=== PATIENT | female | born 1945 | race Caucasian/White ===

== ENCOUNTER 2019-11-17 05:53 | Inpatient (IN) ==
--- NOTE | 2019-10-26 13:21 | Anesthesiology Consultation ---
Date of Service October 26, 2019 Assessment & Plan (1) Encounter for pre-operative examination: - Awaiting review of preop testing (labs, EKG, CXR). - Awaiting surgeon-ordered PCP preop evaluation scheduled 11/09 (Dr. Mendenhall). Chart Review Chart Review: Patient seen in Pre Admission Testing Teaching & Discussion Pre-Anesthesia Teaching/Discussion Notes: Instructed NPO after midnight before surgery,except medications with 15 cc of water. Medication instructions provided according to the PAT guidelines. History Surgery Operation Date: 11/17/19 12:35 Proposed Procedures p Left Total Knee Arthroplasty - Qasim Machado DO Height/Weight Height: 5 ft 8 in Weight: 89.9 kg Allergies Allergy/AdvReac Type Severity Reaction Status Date / Time Penicillins Allergy Unknown facial Verified 10/23/19 15:18 swelling codeine AdvReac Unknown confusion Verified 10/26/19 13:21 OREGANO AdvReac Mild nausea Uncoded 10/26/19 13:21 Medications Home Medications Medication Instructions Recorded Confirmed Last Taken amlodipine 5 mg PO DAILY 10/26/19 10/26/19 Unknown benzonatate 200 mg PO TID PRN 10/26/19 10/26/19 Unknown levothyroxine 88 mcg PO DAILY 10/26/19 10/26/19 Unknown losartan 50 mg PO DAILY 10/26/19 10/26/19 Unknown Past Medical History Medical History History of blood transfusion post-op right TKA Hypertension Hypothyroidism s/p thyroidectomy (for yael's thyroiditis) Osteoarthritis Exercise / Class Metabolic Activity III < 4 Walking/Shop/Light housework (uses walker PRN) Past Family History Family History Other No family history of adverse response to anesthesia Past Surgical History Surgical History History of cataract surgery History of colonoscopy History of endoscopic sinus surgery History of right knee joint replacement History of thyroidectomy partial + subsequent removal of remaining thyroid Past Anesthesia History No Hx of Anesthesia Complications and No Family Hx of Anesthesia Complications History of PONV No Hx of PONV and No Hx of Motion Sickness Social History Smoking Status: Never smoker Do You Dip or Chew Tobacco: No Hx Alcohol Use: Yes alcohol intake frequency: holidays/special occasions only Hx Substance Use: No substance use type: does not use Review of Systems Chronic non-productive cough. Patient denies chest pain, shortness of breath, wheezing, palpitations. Physical Exam Vital Signs VITALS BP 129/75 P 77 TEMP 98.4 SP02 94%RA RESP 16 PHYSICAL Full neck and c-spine range of motion. Full TMJ range of motion. TMD 3 finger breaths Mallampati Score 3 Dentition: intact Lungs: clear throughout to auscultation Cardiac: regular rate and rhythm, no murmurs noted Spine: normal Carotid arteries: negative bruit Extremities: no edema
--- NOTE | 2019-10-26 14:26 | XRay Report ---
XR chest Pre-admission PA/Lat CLINICAL HISTORY: pat preoperative evaluation COMPARISON STUDY: No previous studies for comparison. FINDINGS: The bones soft tissues and hemidiaphragms are normal. The cardiomediastinal silhouette is n ormal. The lungs are clear. The pulmonary vasculature is normal. IMPRESSION: Negative chest. ACT 112: Negative or not required by law. The above report was generated using voice recognition software. It may contain grammatical, syntax or spelling errors. Electronically signed by: Bravo Ruiz M.D. 10/26/2019 2:25 PM
[2019-10-26 15:44] LABS: Basophils # (auto) 0.02 K/uL (0-0.2); Basophils % (auto) 0.2 %; Eosinophils # (auto) 0.06 K/uL (0-0.5); Eosinophils % (auto) 0.7 %; Hematocrit (blood only) 31.4 % (37-47); Immature Granulocytes # (auto) 0.02 K/uL (0.00-0.02); Immature Granulocytes % (auto) 0.2 %; Lymphocytes # (auto) 1.06 K/uL (1.2-3.4); Lymphocytes % (auto) 12.8 %; Mean Corpuscular Hemoglobin 26.5 pg (25-34); Mean Corpuscular Hgb Conc 31.8 g/dL (32-36); Mean Corpuscular Volume 83.1 fL (80-100); Mean Platelet Volume 11.6 fL (7.4-10.4); Monocytes # (auto) 0.38 K/uL (0.11-0.59); Monocytes % (auto) 4.6 %; Neutrophils # (auto) 6.72 K/uL (1.4-6.5); Neutrophils % (auto) 81.5 %; Platelet Count 243 K/uL (130-400); RDW Coefficient of Variation 20.1 % (11.5-14.5); RDW Standard Deviation 60.8 fL (36.4-46.3); Red Blood Count 3.78 M/uL (4.2-5.4); White Blood Count 8.26 K/uL (4.8-10.8)
[2019-10-26 15:46] LABS: Albumin Level 3.7 gm/dl (3.4-5.0); BUN Creatinine Ratio 12.2 (10-20); Calcium 8.6 mg/dl (8.5-10.1); Creatinine Clr Calc Pharmacy 50.6 ml/min; Est GFR (African American) 55.9; Est GFR (Non-African American) 48.2; Potassium 3.2 mmol/L (3.5-5.1)
[2019-10-26 15:49] LABS: INR 1.1 (0.9-1.1); Partial Thromboplastin Time 26.6 Seconds (21.0-31.0); Prothrombin Time 11.3 Seconds (9.0-12.0)
[2019-10-26 16:17] LABS: Appearance Urine Clear (Clear); Bacteria Urine Automated Negative (Negative); Bilirubin Urine Negative (Negative); Blood Urine Negative (Negative); Color Urine Yellow; Epithelial Cell Urine Auto 20-30 /lpf (0-5); Glucose Urine UA Negative (Negative); Ketones Urine Negative (Negative); Leukocyte Esterase Urine Trace (Negative); Nitrite Urine Negative (Negative); Protein Urine Negative (Negative); RBC Urine Automated 0-4 /hpf (0-4); Urobilinogen Urine Negative (Negative); pH Urine 5.5 (4.5-7.5)
[2019-10-26 16:27] LABS: Anisocytosis Present; Hypochromasia Present; Target Cells 1+
[2019-10-27 06:13] LABS: Estimated Average Glucose 120 mg/dl; Hemoglobin A1C 5.8 % (4.5-5.6)
--- NOTE | 2019-10-29 14:09 | History & Physical Report ---
Date of Service October 29, 2019 date of surgery: 11-17-19 Assessment & Plan (1) Arthritis of knee, left: Further care discussed with patient and at this point in time has failed conservative measures and would like to proceed with a left total knee replacement. Plan on discharge will be home with home health physical therapy. DVT prophalaxis with TEDs, SCDs and will also place on aspirin 81 mg p.o. b.i.d. for a month postop. Patient will have follow up appointment in our office two weeks post op for staple/suture removal and re-evaluation. Patient otherwise has no other questions or concerns. History of Present Illness Chief Complaint: left knee pain Primary Care Provider: Ben Fletcher Ms Mondragon is a 74 year old female who complains of left knee pain, presents for pre-op evaluation prior to a left total knee replacement at [facility]. She presents with pain, decreased motion and stiffness on the left side. She states that the symptoms have been chronic non-traumatic. The symptoms occur constantly with intermittent worsening. Currently the patient states that the symptoms are moderate-severe. The pain is described as aching, throbbing and shooting. She rates her current pain as 8/10. The symptoms are aggravated by descending stairs, ascending stairs, daily activities, kneeling, movement, sleeping in any position, standing, walking and squatting. she had previous Right TKA in 2007. she has tried PO NSAIDs and tylenol without relief. Allergies Allergy/AdvReac Type Severity Reaction Status Date / Time Penicillins Allergy Unknown facial Verified 10/23/19 15:18 swelling codeine AdvReac Unknown confusion Verified 10/26/19 13:21 OREGANO AdvReac Mild nausea Uncoded 10/26/19 13:21 Home Medications Home Medications Medication Instructions Recorded Confirmed Type amlodipine 5 mg PO DAILY 10/26/19 10/26/19 History benzonatate 200 mg PO TID PRN 10/26/19 10/26/19 History levothyroxine 88 mcg PO DAILY 10/26/19 10/26/19 History losartan 50 mg PO DAILY 10/26/19 10/26/19 History Past Med/Surg History Medical History History of blood transfusion post-op right TKA Hypertension Hypothyroidism s/p thyroidectomy (for yael's thyroiditis) Osteoarthritis Surgical History History of cataract surgery History of colonoscopy History of endoscopic sinus surgery History of right knee joint replacement History of thyroidectomy partial + subsequent removal of remaining thyroid Family History Other No family history of adverse response to anesthesia Social History Preferred Language: Spanish Communication Ability: Effective Video Network Engineer Required: No Beliefs That Will Affect Care: None Current Living Situation: Alone Other Information That Helps Us Care for You: No Feels Safe at Home: Yes Safety Concerns: Feels Safe At This Time Smoking Status: Never smoker Do You Dip or Chew Tobacco: No ; Second Hand Exposure: Yes (as a child and first was a smoker) ; Hx Alcohol Use: Yes Hx Substance Use: No Review of Systems Review of Systems: All systems reviewed & are unremarkable except as noted in HPI & below Constitutional: no fever, no chills and no sweats Respiratory: no cough and no dyspnea Cardiovascular: no chest pain, no dyspnea and no orthopnea Gastrointestinal: no abdominal pain, no nausea and no vomiting Musculoskeletal: as per Subjective / HPI Physical Exam Physical Exam: Ht: 5ft 8in Wt: 89.9kg Constitutional: WD/WN, vitals as above no acute distress Respiratory: normal respiratory effort, lungs clear to auscultation no respiratory distress, no labored breathing and does not use accessory muscles Cardiovascular: RRR, no murmur, no edema Gastrointestinal (Abdomen): normal bowel sounds, soft, nontender, no hepatosplenomegaly Musculoskeletal: Knee: + knee abnormal to inspection (left knee: ), + effusion (+1 effusion), + surgical incision (well healed portals), + limited ROM of knee (ROM 0/3/110), + knee ROM with crepitation, + joint line tenderness (medial joint line) and + Amrita's sign positive; no deformity, no skin erythema, no ecchymosis, no valgus laxity, no varus laxity, anterior drawer test negative, Kaylah's sign negative and pivot shift test negative Results & Data Laboratory Results Laboratory Results WBC 8.26 K/uL (4.8-10.8) 10/26/19 14:00 RBC 3.78 M/uL (4.2-5.4) L 10/26/19 14:00 Hgb 10.0 g/dL (12.0-16.0) L 10/26/19 14:00 Hct 31.4 % (37-47) L 10/26/19 14:00 MCV 83.1 fL (80-100) 10/26/19 14:00 MCH 26.5 pg (25-34) 10/26/19 14:00 MCHC 31.8 g/dL (32-36) L 10/26/19 14:00 RDW Std Deviation 60.8 fL (36.4-46.3) H 10/26/19 14:00 RDW Coeff of Elvin 20.1 % (11.5-14.5) H 10/26/19 14:00 Plt Count 243 K/uL (130-400) 10/26/19 14:00 MPV 11.6 fL (7.4-10.4) H 10/26/19 14:00 Immature Gran % (Auto) 0.2 % 10/26/19 14:00 Neut % (Auto) 81.5 % 10/26/19 14:00 Lymph % (Auto) 12.8 % 10/26/19 14:00 [place] % (Auto) 4.6 % 10/26/19 14:00 Eos % (Auto) 0.7 % 10/26/19 14:00 Baso % (Auto) 0.2 % 10/26/19 14:00 Immature Gran # (Auto) 0.02 K/uL (0.00-0.02) 10/26/19 14:00 Neut # (Auto) 6.72 K/uL (1.4-6.5) H 10/26/19 14:00 Lymph # (Auto) 1.06 K/uL (1.2-3.4) L 10/26/19 14:00 [place] # (Auto) 0.38 K/uL (0.11-0.59) 10/26/19 14:00 Eos # (Auto) 0.06 K/uL (0-0.5) 10/26/19 14:00 Baso # (Auto) 0.02 K/uL (0-0.2) 10/26/19 14:00 Hypochromasia Present 10/26/19 14:00 Anisocytosis Present 10/26/19 14:00 Target Cells 1+ 10/26/19 14:00 PT 11.3 Seconds (9.0-12.0) 10/26/19 14:00 INR 1.1 (0.9-1.1) 10/26/19 14:00 APTT 26.6 Seconds (21.0-31.0) 10/26/19 14:00 PTT Ratio 1.0 10/26/19 14:00 Sodium 139 mmol/L (136-145) 10/26/19 14:00 Potassium 3.2 mmol/L (3.5-5.1) L 10/26/19 14:00 Chloride 104 mmol/L (98-107) 10/26/19 14:00 Carbon Dioxide 30 mmol/L (21-32) 10/26/19 14:00 Anion Gap 5.0 (3-11) 10/26/19 14:00 BUN 14 mg/dl (7-18) 10/26/19 14:00 Creatinine 1.11 mg/dl (0.6-1.2) 10/26/19 14:00 Est Cr Clr Drug Dosing 50.6 ml/min 10/26/19 14:00 Est GFR ( Amer) 55.9 10/26/19 14:00 Est GFR (Non-Af Amer) 48.2 10/26/19 14:00 BUN/Creatinine Ratio 12.2 (10-20) 10/26/19 14:00 Glucose 155 mg/dl (70-99) H 10/26/19 14:00 Estimat Average Glucose 120 mg/dl 10/26/19 14:00 Hemoglobin A1c 5.8 % (4.5-5.6) H 10/26/19 14:00 Calcium 8.6 mg/dl (8.5-10.1) 10/26/19 14:00 Albumin 3.7 gm/dl (3.4-5.0) 10/26/19 14:00 Urine Color Yellow 10/26/19 14:00 Urine Appearance Clear (Clear) 10/26/19 14:00 Urine pH 5.5 (4.5-7.5) 10/26/19 14:00 Ur Specific [place] 1.020 (1.000-1.030) 10/26/19 14:00 Urine Protein Negative (Negative) 10/26/19 14:00 Urine Glucose (UA) Negative (Negative) 10/26/19 14:00 Urine Ketones Negative (Negative) 10/26/19 14:00 Urine Blood Negative (Negative) 10/26/19 14:00 Urine Nitrite Negative (Negative) 10/26/19 14:00 Urine Bilirubin Negative (Negative) 10/26/19 14:00 Urine Urobilinogen Negative (Negative) 10/26/19 14:00 Ur Leukocyte Esterase Trace (Negative) H 10/26/19 14:00 Urine WBC (Auto) 1-5 /hpf (0-5) 10/26/19 14:00 Urine RBC (Auto) 0-4 /hpf (0-4) 10/26/19 14:00 U Hyaline Cast (Auto) 1-5 /lpf (0-5) 10/26/19 14:00 U Epithel Cells (Auto) 20-30 /lpf (0-5) H 10/26/19 14:00 Urine Bacteria (Auto) Negative (Negative) 10/26/19 14:00 Blood Type A Negative 10/26/19 14:00 Antibody Screen NEGATIVE 10/26/19 14:00 Diagnostic Findings Left Knee X-rays confirm degenerative changes to the left knee, greatest medial compartments and patellofemoral joint, showing joint space narrowing, osteophyte formation and subchondral sclerosis. no acute bony pathology noted.
--- OUTSIDE RECORDS SUMMARY | 2019-11-17 05:56 | External Medical Summary | Continuity of Care Document ---
:1945 Author Name Juan Mcmahan, Provider Address Unavailable Unavailable , Care Team Providers Name Role Phone Unavailable Unavailable Unavailable PCP, UNKNOWN Unavailable Unavailable Problems Active medical history not documented Allergies and Adverse Reactions Allergy history not documented Medications Medications not documented Procedures Procedures not documented Immunizations Immunizations not documented Plan of Treatment Planned Observations Planned Goals not documented Results No Known Results Results not documented
[2019-11-17] MEDS ORDERED: CLINDAMYCIN 600 MG/54 ML BAG IV SCH (06:00)
[2019-11-17] MEDS ORDERED: METOCLOPRAMIDE HCL 10 MG TABLET PO SCH (06:00)
[2019-11-17] MEDS ORDERED: dexAMETHasone 4 MG TAB PO SCH (06:00)
[2019-11-17] MEDS ORDERED: TRANEXAMIC ACID 1,000 MG **IV Intra-op IV SCH (06:00)
[2019-11-17] MEDS ORDERED: ROPIVACAINE 0.5% HCL/PF 150 MG, BUPIVACAINE 0.5% MPF 30 ML, EPINEPHrine 30MG/30ML (OR U... INSTIL SCH (06:00)
[2019-11-17] MEDS ORDERED: FAMOTIDINE 20 MG TAB PO SCH (06:00)
[2019-11-17] MEDS ORDERED: TRANEXAMIC ACID 1,000 MG **IV Pre-op IV SCH (06:00)
[2019-11-17] MEDS ORDERED: GABAPENTIN 300 MG CAP PO SCH (06:00)
[2019-11-17] MEDS ORDERED: ACETAMINOPHEN 500 MG TAB PO SCH (06:00)
[2019-11-17] MEDS ORDERED: CeleBREX 200 MG CAP PO SCH (06:00)
[2019-11-17] MEDS ORDERED: LR 500ML BOLUS, THEN 15ML/HR IV SCH (06:00)
[2019-11-17] MEDS ORDERED: BUPIVACAINE 0.5 % 5 MG/1 ML PF 10ML VIAL ONE (06:35)
[2019-11-17] MEDS ORDERED: BACITRACIN INJ 50,000 UNIT VIAL ONE (07:01)
[2019-11-17] MEDS ORDERED: ePHEDrine sulfate 50 MG/ML AMP IV PRN (07:07)
[2019-11-17] MEDS ORDERED: ONDANSETRON INJ 2 MG/ML 2 ML VIAL IV PRN ×2 (07:07→11:21)
[2019-11-17] MEDS ORDERED: fentaNYL citrate 100 MCG/2 ML VIAL IV PRN (07:07)
[2019-11-17] MEDS ORDERED: ATROPINE SULFATE 0.1 MG/ML 10ML SYR IV PRN (07:07)
[2019-11-17] MEDS ORDERED: PHENYLEPHRINE 100MCG/ML 5ML SYR ONE (07:12)
[2019-11-17] MEDS ORDERED: fentaNYL citrate 100 MCG/2 ML VIAL ONE (07:12)
[2019-11-17] MEDS ORDERED: ePHEDrine sulfate 50 MG/ML SYR ONE (07:12)
[2019-11-17] MEDS ORDERED: PROPOFOL IV EMULSION 10 MG/ML 20 ML VIAL IV ONE (07:12)
[2019-11-17] MEDS ORDERED: LIDOCAINE HCL 2% 2 ML VIAL/AMP(20MG/ML) INFIL ONE (07:12)
[2019-11-17] MEDS ORDERED: MIDAZOLAM HCL 1 MG/ML 2ML VIAL ONE (07:12)
--- NOTE | 2019-11-17 07:23 | History & Physical Bridge Note ---
Date of Service November 17, 2019 History & Physical Bridge Note I have examined the patient, reviewed the History & Physical and in the interval since the performance of the History & Physical I have noted the following changes of clinical significance: no changes noted
--- NOTE | 2019-11-17 09:35 | Operative Report ---
Post Operative Report Pre & Post Diagnosis Operation Date: 11/17/19 08:35 Pre-Op Diagnosis: LEFT KNEE OSTEOARTHRITIS Post-Op Diagnosis: LEFT KNEE OSTEOARTHRITIS I identified the patient and participated in the time-out.: Yes Procedure Operation Date: 11/17/19 08:35 Actual Procedures p Left Total Knee Arthroplasty(Left utilizing Riley & NephMerku journey 2 patient matched total knee arthroplasty size 6 femur 5 tibia 13 polyethylene 32 oval patella) - Qasim Machado DO Surgeon Qasim Machado DO Parts Counter Associate Christiano ESCALANTE Estimated Blood Loss 5 Findings Consistent with Post-Op Diagnosis Patient presents with severe end-stage tricompartmental degenerative joint disease left knee no response to conservative management intraoperative findings included [id number] eburnation with marginal osteophytes subchondral sclerosis cystic changes [id number] moderate to large effusion. Specimens Bone and cartilage Drains Medium bore Hemovac Complications none Disposition Accompanied Patient To Recovery: No Disposition: Recovery Room Indications Patient presents for left total knee arthroplasty after failed attempted conservative management clinic physical therapy anti-inflammatories relative rest activity modification corticosteroid injections Visco supplementations patient above intraoperative findings were noted times surgery Description of Procedure After proper prepping and draping of the left lower extremity anterior midline incision was made over the region of the extensor extensor mechanism after meticulous hemostasis was obtained and maintained in subcutaneous tissues a medial parapatellar incision was made The patella was subluxed lateralward the medial lateral gutter were cleaned from any hypertrophic synovitis and scar tissue of the distal femoral block was placed and the distal femoral osteotomy cut was made subsequently the chamfers anterior and posterior osteotomy cuts were made utilizing the 4-in-1 block the tibia was subsequently subluxed anteriorward medial and ateral meniscal remnants were excised in their entirety remnants of the anterior and posterior cruciate ligaments were excised in their entirety excellent exposure of the proximal tibia was obtained the tibial osteotomy guide was placed on the proximal tibial osteotomy cut was made once again the knee was irrigated with copious amounts of sterile saline solution the patella was subsequently everted lateralward thickened scar tissue around the patella was removed the patella was subsequently cut utilizing a freehand technique and was drilled prepared for final preparation and placement of patella socially flexion-extension gaps were checked and the equal and symmetric trials were placed to the appropriate femoral and tibial trials with poly-spacer being placed for equal flexion and extension gaps and full range of motion including extension to 0 and flexion to 140 the trial components after having been taken to recovery range of motion was subsequently removed meticulous hemostasis was obtained and maintained subsequently a knee block injection of joint cocktail including ropivacaine 0.5% 150 mg. Bupivacaine 0.5% epinephrine 1-200,030 mL's toradol 30 mg dexamethasone 4 mg ketamine 10 mg clonidine 100 micrograms normal saline solution 30 mg was infiltrated into the soft tissues of the posterior knee medial lateral gutters and periosteal synovium special attention was paid to protect neurovascular structures at all times subsequently trial components having been removed the knee was irrigated with sterile saline solution. debris was removed the proximal tibia was subsequently prepared and was made ready for the placement of the tibial component tibial component was also cemented and tamped into position the femoral component was subsequently placed and cemented in the position the patellar component was subsequently cemented in position because hemostasis once again obtained and maintained wound having been thoroughly irrigated with debridement and debridement lavage was performed as well as a medial parapatellar incision closed with #1 Vicryl in interrupted fashion subcutaneous was closed with #2 Vicryl skin was closed with skin clips. PA-C was necessary for prepping and drapping as well as wound closure of deep fascia Sub cutaneous tissue and skin and was necessary for the case. A sterile compressive dressing was placed patient was taken to recovery in stable condition of report dictated by Carter I attest to the content of the Intraoperative Record and any orders documented therein. Any exceptions are noted below. I attest to the content of the Intraoperative Record and any orders documented therein. Any exceptions are noted below.
--- NOTE | 2019-11-17 10:46 | XRay Report ---
XR knee LT 1 or 2V routine CLINICAL HISTORY: Surgical Post Op COMPARISON: Knee radiographs March 01, 2009. FINDINGS: Alignment of the total left knee arthroplasty is anatomic. There is no fracture or unexpec anastasia radiopaque foreign body. There are drains and skin gregorio. IMPRESSION: Expected findings following total left knee arthroplasty. ACT 112: Negative or not required by law. Electronically signed by: Chilango Jin M.D. 11/17/2019 10:45 AM
--- NOTE | 2019-11-17 11:03 | Anesthesiology Progress Note ---
Date of Service November 17, 2019 Anesthesia Post Procedure Vital Signs Vital Signs: Temp Pulse Pulse Resp BP Pulse Ox 11/17/19 10:55 97.7 F 64 13 104/55 L 100 11/17/19 10:45 68 12 104/54 L 99 11/17/19 10:35 68 14 104/53 L 100 11/17/19 10:25 70 14 99/54 L 100 11/17/19 10:18 97.3 F L 75 14 101/49 L 99 11/17/19 06:32 98.1 F 67 16 138/77 100 Transfer of Care Handoff Completed per policy Notes Mental Status: alert / awake / arousable and participated in evaluation Patient Amnestic to Procedure: Yes Nausea / Vomiting: adequately controlled Pain: adequately controlled Airway Patency, RR, SpO2: stable & adequate BP & HR: stable & adequate Hydration State: stable & adequate Neuraxial Anesthesia: was administered and sensory block is resolving Anesthetic Complications: no major complications apparent and Pt Satisfied with anesthetic care
[2019-11-17] MEDS ORDERED: NALOXONE HCL 0.4 MG/1 ML VIAL/CARP IV PRN (11:21)
[2019-11-17] MEDS ORDERED: MAGNESIUM HYDROXIDE SUSP 30 ML UDC PO PRN (11:21)
[2019-11-17] MEDS ORDERED: bisacodyL 10 MG SUPP PR PRN (11:21)
[2019-11-17] MEDS: SODIUM CHLORIDE 0.9% 1000ML 1,000 ML IV SCH ×2 (11:31→21:47)
[2019-11-17] MEDS: ACETAMINOPHEN 500 MG TAB PO SCH ×2 (13:58→21:46)
[2019-11-17] MEDS: CLINDAMYCIN 600 MG in DEXTROSE 5% 50 ML IV SCH (15:32)
[2019-11-17] MEDS: FERROUS GLUCONATE 324 MG TAB PO SCH (16:20)
[2019-11-17] MEDS: ASPIRIN 81 MG ECTAB PO SCH (21:46)
[2019-11-17] MEDS: SENNA 8.6 MG TAB PO SCH (21:46)
[2019-11-17] MEDS: DOCUSATE SODIUM 100 MG CAP PO SCH (21:48)
[2019-11-18] MEDS: CLINDAMYCIN 600 MG in DEXTROSE 5% 50 ML IV SCH (00:14)
[2019-11-18] MEDS: ACETAMINOPHEN 500 MG TAB PO SCH ×3 (05:44→21:53)
[2019-11-18] MEDS: LEVOTHYROXINE SODIUM 88 MCG TABLET PO SCH (05:44)
[2019-11-18 06:33] LABS: Hematocrit (blood only) 24.1 % (37-47); Hemoglobin 7.9 g/dL (12.0-16.0); Mean Corpuscular Hemoglobin 27.9 pg (25-34); Mean Corpuscular Hgb Conc 32.8 g/dL (32-36); Mean Corpuscular Volume 85.2 fL (80-100); Mean Platelet Volume 9.4 fL (7.4-10.4); Platelet Count 248 K/uL (130-400); RDW Standard Deviation 62.2 fL (36.4-46.3); Red Blood Count 2.83 M/uL (4.2-5.4); White Blood Count 10.63 K/uL (4.8-10.8)
[2019-11-18 07:11] LABS: BUN Creatinine Ratio 17.8 (10-20); Calcium 7.9 mg/dl (8.5-10.1); Creatinine Clr Calc Pharmacy 62.9 ml/min; Est GFR (Non-African American) 64.7; Potassium 3.7 mmol/L (3.5-5.1)
--- NOTE | 2019-11-18 08:18 | Anesthesiology Progress Note ---
Date of Service November 18, 2019 Anesthesia Post Procedure Vital Signs Vital Signs: Temp Pulse Pulse Resp BP BP Pulse Ox 11/18/19 07:27 36.6 C 62 18 114/71 98 11/18/19 03:26 36.7 C 71 14 102/55 L 97 11/17/19 23:23 36.6 C 77 15 96/51 L 96 11/17/19 20:01 36.3 C L 77 17 127/73 98 11/17/19 15:05 36.4 C L 60 17 108/60 99 11/17/19 14:18 36.4 C L 69 16 124/76 94 11/17/19 13:20 36.4 C L 70 16 116/70 98 11/17/19 12:26 65 16 100/64 96 11/17/19 11:50 62 14 104/64 100 11/17/19 11:20 36.4 C L 71 14 94/56 L 98 11/17/19 11:05 36.5 C 68 15 100/55 L 99 11/17/19 10:55 36.5 C 64 13 104/55 L 100 11/17/19 10:45 68 12 104/54 L 99 11/17/19 10:35 68 14 104/53 L 100 11/17/19 10:25 70 14 99/54 L 100 11/17/19 10:18 36.3 C L 75 14 101/49 L 99 Notes Mental Status: alert / awake / arousable and participated in evaluation Patient Amnestic to Procedure: Yes Nausea / Vomiting: adequately controlled Pain: adequately controlled Airway Patency, RR, SpO2: stable & adequate BP & HR: stable & adequate Hydration State: stable & adequate Neuraxial Anesthesia: was administered and sensory block resolved Anesthetic Complications: no major complications apparent and Pt Satisfied with anesthetic care
[2019-11-18] MEDS: MULTIVITAMIN TAB PO SCH (08:43)
[2019-11-18] MEDS: AMLODIPINE BESYLATE 5 MG TAB PO SCH (08:43)
[2019-11-18] MEDS: ASPIRIN 81 MG ECTAB PO SCH ×2 (08:43→20:35)
[2019-11-18] MEDS: FERROUS GLUCONATE 324 MG TAB PO SCH ×2 (08:43→17:03)
[2019-11-18] MEDS: LOSARTAN POTASSIUM 50 MG TAB PO SCH (08:43)
[2019-11-18] MEDS: DOCUSATE SODIUM 100 MG CAP PO SCH ×2 (08:45→20:34)
--- NOTE | 2019-11-18 08:47 | Orthopedic Progress Note ---
Date of Service November 18, 2019 Assessment & Plan (1) Arthritis of knee, left: Postop day 1 status post left total knee arthroplasty. Anemia-H&H as noted above. Patient was noted to have a hemoglobin of 10.0 preoperatively. Hemoglobin reviewed in 2008 was also around the 10 janis but patient is unsure if she is ever been told she is has chronic anemia etc.. She is currently asymptomatic. Vital signs are stable. She states that she has been on iron in the past but not recently. Plan to hold on transfusion at this time. We will see how she progresses with her physical therapy today. Begin PT/OT protocols. Weightbearing as tolerated. DVT prophylaxis-aspirin twice daily, SCDs, JACOB hose Pain management with acetaminophen, IV hydromorphone, oxycodone. DC planning-patient currently states she is not going to do any formal PT. She wants a list of exercises to do on her own at home. She states that she has done this before and has access to physical therapy centers if she feels she needs any extra help. I will discuss this with Dr. Machado's team. Subjective Postop day 1 Patient is currently sitting up in bed. She is awake and alert. No complaints this morning. She feels well. Denies any shortness of breath, chest pain, lightheadedness. Pain is controlled. Physical Exam Physical Exam: Dressings are clean, dry, and intact. Calves are soft and nontender. Neurovascular is intact. Toes are mobile. She has good dorsiflexion and plantarflexion of the left ankle and foot. Hemovac drainage was minimal. Results & Data Vital Signs (Past 12 Hours) Vital Signs Temp Pulse Resp BP BP Pulse Ox 11/18/19 07:27 36.6 C 62 18 114/71 98 11/18/19 03:26 36.7 C 71 14 102/55 L 97 11/17/19 23:23 36.6 C 77 15 96/51 L 96 Laboratory Results Laboratory Results WBC 10.63 K/uL (4.8-10.8) 11/18/19 06:23 RBC 2.83 M/uL (4.2-5.4) L 11/18/19 06:23 Hgb 7.9 g/dL (12.0-16.0) L 11/18/19 06:23 Hct 24.1 % (37-47) L 11/18/19 06:23 MCV 85.2 fL (80-100) 11/18/19 06:23 MCH 27.9 pg (25-34) 11/18/19 06:23 MCHC 32.8 g/dL (32-36) 11/18/19 06:23 RDW Std Deviation 62.2 fL (36.4-46.3) H 11/18/19 06:23 RDW Coeff of Elvin 20.0 % (11.5-14.5) H 11/18/19 06:23 Plt Count 248 K/uL (130-400) 11/18/19 06:23 MPV 9.4 fL (7.4-10.4) 11/18/19 06:23 Immature Gran % (Auto) 0.2 % 10/26/19 14:00 Neut % (Auto) 81.5 % 10/26/19 14:00 Lymph % (Auto) 12.8 % 10/26/19 14:00 [place] % (Auto) 4.6 % 10/26/19 14:00 Eos % (Auto) 0.7 % 10/26/19 14:00 Baso % (Auto) 0.2 % 10/26/19 14:00 Immature Gran # (Auto) 0.02 K/uL (0.00-0.02) 10/26/19 14:00 Neut # (Auto) 6.72 K/uL (1.4-6.5) H 10/26/19 14:00 Lymph # (Auto) 1.06 K/uL (1.2-3.4) L 10/26/19 14:00 [place] # (Auto) 0.38 K/uL (0.11-0.59) 10/26/19 14:00 Eos # (Auto) 0.06 K/uL (0-0.5) 10/26/19 14:00 Baso # (Auto) 0.02 K/uL (0-0.2) 10/26/19 14:00 Hypochromasia Present 10/26/19 14:00 Anisocytosis Present 10/26/19 14:00 Target Cells 1+ 10/26/19 14:00 PT 11.3 Seconds (9.0-12.0) 10/26/19 14:00 INR 1.1 (0.9-1.1) 10/26/19 14:00 APTT 26.6 Seconds (21.0-31.0) 10/26/19 14:00 PTT Ratio 1.0 10/26/19 14:00 Sodium 139 mmol/L (136-145) 11/18/19 06:23 Potassium 3.7 mmol/L (3.5-5.1) 11/18/19 06:23 Chloride 109 mmol/L (98-107) H 11/18/19 06:23 Carbon Dioxide 25 mmol/L (21-32) 11/18/19 06:23 Anion Gap 5.0 (3-11) 11/18/19 06:23 BUN 15 mg/dl (7-18) 11/18/19 06:23 Creatinine 0.87 mg/dl (0.6-1.2) 11/18/19 06:23 Est Cr Clr Drug Dosing 62.9 ml/min 11/18/19 06:23 Est GFR ( Amer) 75.0 11/18/19 06:23 Est GFR (Non-Af Amer) 64.7 11/18/19 06:23 BUN/Creatinine Ratio 17.8 (10-20) 11/18/19 06:23 Glucose 107 mg/dl (70-99) H 11/18/19 06:23 Estimat Average Glucose 120 mg/dl 10/26/19 14:00 Hemoglobin A1c 5.8 % (4.5-5.6) H 10/26/19 14:00 Calcium 7.9 mg/dl (8.5-10.1) L 11/18/19 06:23 Albumin 3.7 gm/dl (3.4-5.0) 10/26/19 14:00 Urine Color Yellow 10/26/19 14:00 Urine Appearance Clear (Clear) 10/26/19 14:00 Urine pH 5.5 (4.5-7.5) 10/26/19 14:00 Ur Specific [place] 1.020 (1.000-1.030) 10/26/19 14:00 Urine Protein Negative (Negative) 10/26/19 14:00 Urine Glucose (UA) Negative (Negative) 10/26/19 14:00 Urine Ketones Negative (Negative) 10/26/19 14:00 Urine Blood Negative (Negative) 10/26/19 14:00 Urine Nitrite Negative (Negative) 10/26/19 14:00 Urine Bilirubin Negative (Negative) 10/26/19 14:00 Urine Urobilinogen Negative (Negative) 10/26/19 14:00 Ur Leukocyte Esterase Trace (Negative) H 10/26/19 14:00 Urine WBC (Auto) 1-5 /hpf (0-5) 10/26/19 14:00 Urine RBC (Auto) 0-4 /hpf (0-4) 10/26/19 14:00 U Hyaline Cast (Auto) 1-5 /lpf (0-5) 10/26/19 14:00 U Epithel Cells (Auto) 20-30 /lpf (0-5) H 10/26/19 14:00 Urine Bacteria (Auto) Negative (Negative) 10/26/19 14:00 Blood Type A Negative 10/26/19 14:00 Antibody Screen NEGATIVE 10/26/19 14:00
[2019-11-18] MEDS: OXYCODONE HCL IR 5 MG TAB (IMMEDIATE RELEASE) PO PRN ×2 (16:12→17:03)
[2019-11-18] MEDS: SENNA 8.6 MG TAB PO SCH (20:34)
[2019-11-19] MEDS: OXYCODONE HCL IR 5 MG TAB (IMMEDIATE RELEASE) PO PRN ×3 (05:34→13:45)
[2019-11-19] MEDS: LEVOTHYROXINE SODIUM 88 MCG TABLET PO SCH (05:35)
[2019-11-19] MEDS: ACETAMINOPHEN 500 MG TAB PO SCH (05:48)
[2019-11-19 05:54] LABS: Hematocrit (blood only) 23.7 % (37-47); Hemoglobin 7.7 g/dL (12.0-16.0); Mean Corpuscular Hemoglobin 27.7 pg (25-34); Mean Corpuscular Hgb Conc 32.5 g/dL (32-36); Mean Corpuscular Volume 85.3 fL (80-100); Mean Platelet Volume 10.4 fL (7.4-10.4); Platelet Count 237 K/uL (130-400); RDW Coefficient of Variation 20.3 % (11.5-14.5); RDW Standard Deviation 63.5 fL (36.4-46.3); Red Blood Count 2.78 M/uL (4.2-5.4); White Blood Count 6.41 K/uL (4.8-10.8)
[2019-11-19] MEDS: HYDROmorphone INJ 0.5 MG/0.5 ML SYR IV PRN ×2 (06:22→11:06)
[2019-11-19] MEDS: MULTIVITAMIN TAB PO SCH (09:24)
[2019-11-19] MEDS: LOSARTAN POTASSIUM 50 MG TAB PO SCH (09:24)
[2019-11-19] MEDS: ASPIRIN 81 MG ECTAB PO SCH (09:24)
[2019-11-19] MEDS: AMLODIPINE BESYLATE 5 MG TAB PO SCH (09:24)
[2019-11-19] MEDS: FERROUS GLUCONATE 324 MG TAB PO SCH (09:24)
[2019-11-19] MEDS: DOCUSATE SODIUM 100 MG CAP PO SCH (09:25)
--- NOTE | 2019-11-19 09:29 | Orthopedic Progress Note ---
Date of Service November 19, 2019 Assessment & Plan (1) Arthritis of knee, left: Postop day 1 status post left total knee arthroplasty. Anemia-H&H as noted above. Patient was noted to have a hemoglobin of 10.0 preoperatively. Hemoglobin reviewed in 2008 was also around the 10 janis but patient is unsure if she is ever been told she is has chronic anemia etc.. She is currently asymptomatic. Vital signs are stable. She states that she has been on iron in the past but not recently. Plan to hold on transfusion at this time. We will see how she progresses with her physical therapy today. Hemoglobin appears stable around 7.7. Patient is asymptomatic and vital signs are stable. No plans for transfusion at this time. Continue PT/OT protocols. Weightbearing as tolerated. DVT prophylaxis-aspirin twice daily, SCDs, JACOB hose Pain management with acetaminophen, IV hydromorphone, oxycodone. We will plan to recheck her later today to see how her pain control is and how she is progressing with PT. DC planning-patient currently states she is not going to do any formal PT. She wants a list of exercises to do on her own at home. She states that she has done this before and has access to physical therapy centers if she feels she needs any extra help. I will discuss this with Dr. Machado's team. Subjective Postop day 2 status post left total knee arthroplasty. Patient states that she had a restless night. Mostly due to pain control issues. She stated that the stool softener and Senokot was causing her to use the restroom quite a bit yesterday afternoon. She states that she was up out of bed multiple times. This in turn, caused her some increased pain in the left knee. She states that at one point the pain was uncontrolled.She was given her p.o. pain meds and also her IV hydromorphone which helped. Patient was sleeping upon arrival but was easily awoken. Currently she is comfortable but she wants to see how she does with her pain control with PT today and her ambulation. She denies any shortness of breath, chest pain, lightheadedness. Physical Exam Physical Exam: Silverlon dressing is clean, dry, and intact. There is no overt drainage noted in the dressing window. She states she had moderate drainage from her drain site after the drain was removed however this morning the dressing is clean and dry. The knee does have some swelling but is not tense. Calves are soft and nontender. Neurovascular is intact. Toes and ankle are mobile without difficulty. Results & Data Vital Signs (Past 12 Hours) Vital Signs Temp Pulse Resp BP BP Pulse Ox 11/19/19 08:00 36.6 C 72 20 102/64 97 11/18/19 23:24 36.5 C 70 15 120/71 97 Laboratory Results Laboratory Results WBC 6.41 K/uL (4.8-10.8) 11/19/19 05:38 RBC 2.78 M/uL (4.2-5.4) L 11/19/19 05:38 Hgb 7.7 g/dL (12.0-16.0) L 11/19/19 05:38 Hct 23.7 % (37-47) L 11/19/19 05:38 MCV 85.3 fL (80-100) 11/19/19 05:38 MCH 27.7 pg (25-34) 11/19/19 05:38 MCHC 32.5 g/dL (32-36) 11/19/19 05:38 RDW Std Deviation 63.5 fL (36.4-46.3) H 11/19/19 05:38 RDW Coeff of Elvin 20.3 % (11.5-14.5) H 11/19/19 05:38 Plt Count 237 K/uL (130-400) 11/19/19 05:38 MPV 10.4 fL (7.4-10.4) 11/19/19 05:38 Immature Gran % (Auto) 0.2 % 10/26/19 14:00 Neut % (Auto) 81.5 % 10/26/19 14:00 Lymph % (Auto) 12.8 % 10/26/19 14:00 [place] % (Auto) 4.6 % 10/26/19 14:00 Eos % (Auto) 0.7 % 10/26/19 14:00 Baso % (Auto) 0.2 % 10/26/19 14:00 Immature Gran # (Auto) 0.02 K/uL (0.00-0.02) 10/26/19 14:00 Neut # (Auto) 6.72 K/uL (1.4-6.5) H 10/26/19 14:00 Lymph # (Auto) 1.06 K/uL (1.2-3.4) L 10/26/19 14:00 Norton # (Auto) 0.38 K/uL (0.11-0.59) 10/26/19 14:00 Eos # (Auto) 0.06 K/uL (0-0.5) 10/26/19 14:00 Baso # (Auto) 0.02 K/uL (0-0.2) 10/26/19 14:00 Hypochromasia Present 10/26/19 14:00 Anisocytosis Present 10/26/19 14:00 Target Cells 1+ 10/26/19 14:00 PT 11.3 Seconds (9.0-12.0) 10/26/19 14:00 INR 1.1 (0.9-1.1) 10/26/19 14:00 APTT 26.6 Seconds (21.0-31.0) 10/26/19 14:00 PTT Ratio 1.0 10/26/19 14:00 Sodium 139 mmol/L (136-145) 11/18/19 06:23 Potassium 3.7 mmol/L (3.5-5.1) 11/18/19 06:23 Chloride 109 mmol/L (98-107) H 11/18/19 06:23 Carbon Dioxide 25 mmol/L (21-32) 11/18/19 06:23 Anion Gap 5.0 (3-11) 11/18/19 06:23 BUN 15 mg/dl (7-18) 11/18/19 06:23 Creatinine 0.87 mg/dl (0.6-1.2) 11/18/19 06:23 Est Cr Clr Drug Dosing 62.9 ml/min 11/18/19 06:23 Est GFR ( Amer) 75.0 11/18/19 06:23 Est GFR (Non-Af Amer) 64.7 11/18/19 06:23 BUN/Creatinine Ratio 17.8 (10-20) 11/18/19 06:23 Glucose 107 mg/dl (70-99) H 11/18/19 06:23 Estimat Average Glucose 120 mg/dl 10/26/19 14:00 Hemoglobin A1c 5.8 % (4.5-5.6) H 10/26/19 14:00 Calcium 7.9 mg/dl (8.5-10.1) L 11/18/19 06:23 Albumin 3.7 gm/dl (3.4-5.0) 10/26/19 14:00 Urine Color Yellow 10/26/19 14:00 Urine Appearance Clear (Clear) 10/26/19 14:00 Urine pH 5.5 (4.5-7.5) 10/26/19 14:00 Ur Specific [place] 1.020 (1.000-1.030) 10/26/19 14:00 Urine Protein Negative (Negative) 10/26/19 14:00 Urine Glucose (UA) Negative (Negative) 10/26/19 14:00 Urine Ketones Negative (Negative) 10/26/19 14:00 Urine Blood Negative (Negative) 10/26/19 14:00 Urine Nitrite Negative (Negative) 10/26/19 14:00 Urine Bilirubin Negative (Negative) 10/26/19 14:00 Urine Urobilinogen Negative (Negative) 10/26/19 14:00 Ur Leukocyte Esterase Trace (Negative) H 10/26/19 14:00 Urine WBC (Auto) 1-5 /hpf (0-5) 10/26/19 14:00 Urine RBC (Auto) 0-4 /hpf (0-4) 10/26/19 14:00 U Hyaline Cast (Auto) 1-5 /lpf (0-5) 10/26/19 14:00 U Epithel Cells (Auto) 20-30 /lpf (0-5) H 10/26/19 14:00 Urine Bacteria (Auto) Negative (Negative) 10/26/19 14:00 Blood Type A Negative 10/26/19 14:00 Antibody Screen NEGATIVE 10/26/19 14:00
--- NOTE | 2019-11-20 21:36 | Discharge Summary ---
DISCHARGE DIAGNOSIS: Left knee osteoarthritis. CONSULTS: None. COMPLICATIONS: None. PROCEDURES: Left total knee arthroplasty performed by Dr. Machado on 11/17/2019. BRIEF HISTORY: As dictated in the history and physical. HOSPITAL SUMMARY: The patient was admitted on the above-noted date and had the above-noted surgery performed, which she tolerated well. On first postoperative day, she was sitting up in bed, was awake and alert without complaints. She felt well. Denied any shortness of breath, chest pain or lightheadedness. Pain was controlled. Dressings clean, dry and intact. Calves were soft, nontender, neurovascularly intact. Toes were mobile. She had good dorsiflexion and plantar flexion of the left ankle and foot and Hemovac drainage was minimal. Vital signs were stable. She was afebrile. Hemoglobin was 7.9. She continued to remain asymptomatic with her low hemoglobin and was noted that she had a preoperative hemoglobin of 10. She was started on PT and OT protocols, continued on DVT prophylaxis and pain management. Plans were for us to watch her hemoglobin overnight and to continue her PT, OT protocols. By her second postoperative day, the patient states that she had a restless night, mostly due to pain control issues. She apparently had more than adequate result using her stool softener and Senokot and was causing her to use the restroom quite frequently. She states that after her physical therapy time, she was up and down to the bathroom multiple times in and out of bed, this caused an increased pain in her left knee to the point where she required IV pain medications in the middle of the night. She was up quite often and upon arrival, she was sleeping but was easily awoken. Currently, she was comfortable and wanted to see how she does with pain control with PT that day and her ambulation. She denied any shortness of breath, chest pain or lightheadedness. Silverlon dressing was clean, dry and intact. There was no overt drainage noted on the dressing. She stated that she had moderate drainage from her drain site after the drain was removed. However, that morning, the dressing was clean and dry. The knee did have some swelling, but not tense. Calves were soft, nontender. Neurovascularly was intact. Toes and ankle were mobile without difficulty. Vital signs were stable and she was afebrile. Hemoglobin was 7.7 and appeared to be stabilizing. She progressed well with her physical therapy and later that afternoon, she was rechecked and was feeling much better. Her pain control was good. She progressed well with her PT and physical therapy stated that she had improved. She denied any chest pain, shortness of breath or lightheadedness. She was essentially asymptomatic with her anemia and she was asking to go home. Plans were for her to be discharged to home with an iron supplement and also plans were for her to have a CBC drawn early next week with results to her primary care physician and the need to follow up with her primary care physician in a week to 10 days. She was thusly discharged to home on 11/19/2019. For further review, please see chart. LABORATORY AND X-RAY DATA: As per chart. DISCHARGE INSTRUCTIONS: The patient was discharged home in satisfactory condition on 11/19/2019 with diet being regular. ACTIVITY: Full weightbearing with use of walker. Follow TK instruction sheets and special care instructions as noted. Follow up with Dr. Machado in 2 weeks. The patient to call for appointment if one has not been made for you. OTHER DISCHARGE INSTRUCTIONS: CBC to be drawn on 11/23/2019 with results being sent to primary care physician. Follow up with her primary care physician in 10-14 days for your known anemia. DISCHARGE MEDICATIONS: Acetaminophen 1000 mg p.o. q. 8 hours, aspirin 81 mg p.o. b.i.d., ferrous gluconate 324 mg p.o. b.i.d., oxycodone 5 mg p.o. q. 4 hours p.r.n., sennosides 17.2 mg p.o. at bedtime, Bactrim-DS 1 tab p.o. q. 12 hours and resume home meds as listed.
== END 2019-11-19 14:04 | disposition home or self-care (01) | DRG 470 ==
LOC: ASU 05:53 → 3E 10:23